=== PATIENT | male | born 1945 | race Caucasian/White ===

== ENCOUNTER 2018-07-23 11:00 | Inpatient (IN) ==
[2018-10-01] MEDS ORDERED: Chlorhexidine Gluconate 2% 1 Pack (2 Cloths) TOPICAL ONE (05:40)
[2018-10-01] MEDS ORDERED: Metoprolol Tartrate 25 MG Tablet PO ONE (05:40)
[2018-10-01] MEDS ORDERED: Chlorhexidine 4% Topical 120 APPLIC/120 ML Bottle TOPICAL SCH (05:45)
[2018-10-01] MEDS ORDERED: ceFAZolin 2 GM Premix Inj 2 GM/50 ML PIGGYBACK IV.SIG SCH (06:00)
[2018-10-01] MEDS ORDERED: Sodium Chlor 0.9% Inj 500 ML IV.SIG ONE (06:00)
[2018-10-01] MEDS ORDERED: Bupivacaine Liposomal PF 1.3% Inj 20 ML Vial ONE (06:16)
[2018-10-01] MEDS ORDERED: Propofol Inj 500 MG/50 ML Vial ONE (06:18)
[2018-10-01] MEDS ORDERED: Famotidine PF Inj 20 MG/2 ML Vial ONE (06:18)
[2018-10-01] MEDS ORDERED: fentaNYL Citrate Inj 100 MCG/2 ML Ampul ONE (06:40)
[2018-10-01] MEDS ORDERED: fentaNYL Citrate Inj 250 MCG/5 ML Ampul ONE (06:40)
[2018-10-01] MEDS ORDERED: TRANEXAMIC ACID IV.SIG SCH ×2 (07:00→10:00)
[2018-10-01] MEDS ORDERED: Sodium Chlor 0.9% Inj 80 ML, Bupivacaine Liposo PF 1.3% Inj 20 ML P-ARTICULR SCH ×2 (07:00)
[2018-10-01] MEDS ORDERED: SODIUM CHLOR 0.9% IV.SIG SCH ×2 (07:00→10:00)
[2018-10-01] MEDS ORDERED: [UNRECOGNIZED DRUG - OTHER] IRRIGATION ONE ×2 (08:15)
[2018-10-01] MEDS ORDERED: GENTAMICIN IRRIGATION ONE ×2 (08:15)
[2018-10-01] MEDS ORDERED: Bisacodyl 10 MG Supp RECTAL PRN (09:36)
[2018-10-01] MEDS ORDERED: Acetaminophen 325 MG Tablet PO PRN (09:36)
[2018-10-01] MEDS ORDERED: Post-op Orders (for Pharmacy) OTHER STA (09:36)
[2018-10-01] MEDS ORDERED: Morphine Inj 4 MG/ML Vial IV.PUSH PRN (09:36)
[2018-10-01] MEDS ORDERED: Zolpidem Tartrate 5 MG Tablet PO PRN (09:36)
[2018-10-01] MEDS ORDERED: Tranexamic Acid Inj 0 MG in Sodium Chlor 0.9% Inj 100 ML IV.SIG ONE (09:36)
[2018-10-01] MEDS ORDERED: Aluminum/Magnesium/Simethacone Susp 30 ML UDC PO PRN (09:36)
--- NOTE | 2018-10-01 09:46 | P.OP ---
- Preoperative Diagnosis (1) Primary osteoarthritis of left knee - Postoperative Diagnosis (1) Primary osteoarthritis of left knee Date of procedure: 10/01/18 Procedure: Left total knee arthroplasty using [place] Triathlon prosthesis (uncemented). Anesthesia: GETA, regional (Adductor canal block), local (Exparel) Surgeon: Jarrod Jarrett MD Wire Drawing Setter: OLAF Gant Estimated blood loss (mL): 200 Tourniquet time (min): 0 Pathology: none sent Operation and Findings: Indications and Findings: This 73-year-old man has had long-standing arthritis in his right knee nonresponsive to conservative measures including analgesics, activity modification, exercise. He is unable to take anti-inflammatory agents because of anticoagulation. His ambulation tolerance is 60 yards. He has pain in the medial aspect of the knee. He has difficulty ascending and descending stairs, especially descending. He has difficulty walking on uneven ground. He lives on a boat which makes activities of daily living limited. Treatment has included physical therapy, ambulatory aids, intra-articular corticosteroids and analgesics. Physical findings showed genu varum with medial laxity and palpable osteophytes as well as crepitation on motion. X-rays show loss of articular cartilage to [id number] in the medial compartment with medial lateral and patellofemoral osteophytes and medial subchondral sclerosis. Operative findings: There was significant arthritis that was tricompartmental in nature predominantly in the medial compartment, however. In addition, there was medial subchondral sclerosis and tricompartmental osteophytes. The prosthesis used was a [place] Triathlon prosthesis. The femur was a size 8 cruciate retaining. The tibial baseplate was a size 8 Tritanium with a 9 mm, X3 polyethylene, cruciate retaining spacer. The patella was a size 40 mm asymmetric Tritanium backed. The patient was brought to the clean-air operating suite after administration of a regional anesthetic by adductor canal block. A spinal anesthetic was administered. The position was supine with a small bolster under the hip on the operative side. A pneumatic tourniquet was applied to the upper thigh. The lower extremity was prepped with alcohol, Hibiclens and ChloraPrep and draped in the usual manner with the knee draped free. An appropriate timeout procedure was carried out. An incision was made from about 3 fingerbreadths above the superior medial pole of patella down the tibial tubercle on the medial side. The incision was deepened through the subcutaneous tissue to the retinacular structures which were exposed medially and laterally. A medial retinacular incision was made from the superior medial pole of patella down the tibial tubercle and up into the quadriceps tendon, splitting it longitudinally in the medial one third. The patella was reflected. The infrapatellar fat pad was debulked. The anterior cruciate ligament was excised. Medial and lateral meniscectomies were initiated. Fenestrations were made in the distal femur and proximal tibia for intramedullary referencing guides. The distal femoral cutting guide and jig were assembled for a 5, 8 mm cut. When this was fit into position,the cutting block was stabilized with pins. The jig was removed. The distal femoral cut was completed with the oscillating saw. The sizing guide was positioned in place along Whitesides line and the epicondylar axis and stabilized with pins. The femoral size was determined as noted above. The 4-in-1 cutting block was positioned in place. Anterior and posterior cuts were made followed by posterior and anterior chamfer cuts taking care to prevent injury to ligamentous structures. Osteophytes were trimmed from the distal femur. A bone plug was placed into the fenestration of the distal femur. The proximal tibia was exposed. The medial and lateral meniscectomies were completed. The proximal tibial cutting guide was positioned in place and stabilized with a pin for rotation. The depth of cut was verified with a stylus off the high side. The cutting block was stabilized with pins. The jig was removed. The depth of cut was verified and adjusted appropriately with the use of the spacer block. The proximal tibial cut was made with the oscillating saw taking care to prevent injury to neurovascular and ligamentous structures. Proximal tibial bone was removed. Local anesthetic was administered with Exparel in the posterior capsule. The tibial baseplate trial was positioned in place. After verifying the appropriate size, the base plate trial was positioned in place along with its spacer. The femoral component was impacted into place. The alignment was checked. The tibial baseplate was pinned in place on the tibia. Attention was directed to the patella. The patella drill guide was positioned in place for the appropriate sized patella. Patellar drilling was then carried out. The trial patella was positioned in place. The knee was taken through a range of motion. It was felt that further posterior tibial cuts were necessary therefore a bone plug was placed into the tibia fenestration and the extra medullary guide was used to adjust the posterior slope of the tibia by about 2 mm. The cut was then made with the oscillating saw. The trial prostheses were again positioned in place. The knee was taken through a range of motion which was easily 0 extension to 150 degrees. The patella trial was removed. The femoral drill holes were made. The femoral trials were removed. The tibial spacer was removed. A bone plug was placed into the proximal tibia. The tibial punch was impacted through the proximal tibial punch guide. This was all removed followed by placement of the tibial drill guide. The tibial drill holes were made. The guide was removed. The cut ends of bone were cleaned with pulse lavage. The tibial baseplate was impacted into place and seated appropriately. The spacer was inserted. The the femoral component was impacted into place and seated appropriately. The patella component was seated with the patellar vice and tightened appropriately. The knee was taken through a range of motion which was comparable to the previous range of motion with excellent stability in flexion and extension and appropriate patellofemoral tracking. The remainder of the Exparel was injected throughout the knee as a local anesthetic. Drains were brought out the superior lateral aspect of the suprapatellar pouch. Wound closure commenced using 0 Vicryl interrupted [id number] sutures for the capsular and fascial structures, 2-0 Vicryl interrupted simple sutures with buried knots for the subcutaneous tissues and 4-0 Monocryl, continuous subcuticular closure for the skin. The wound was dressed with Dermabond Prineo followed by an OPTifoam AG dressing. Sterile soft roll with a cooling pad and Lloyd bandage from the base of the toes to mid thigh were applied. Patient was transferred from the operating room to the recovery room in satisfactory condition having tolerated procedure well. Counts were correct. Specimens: None. Estimated blood loss: 200 mL
--- NOTE | 2018-10-01 09:48 | P.DCO ---
- Physical Therapy Knee: Total knee, Protocol: Left, Gait training, Full weight bearing Right Lower Extremity Weight Bearing: Weight bearing as tolerated Right Lower Extremity Range of Motion: Active ROM (Active, active assisted and passive range of motion. The range of motion goal is 0 degrees extension to 140 degrees of flexion. The range of motion achieved in the operating room was 0 degrees extension to 150 degrees of flexion.) - Nursing Nursing: Dressing changes (Do not remove Dermabond Prineo (the tape that is directly on the wound).Leave the Optifoam dressing in place for 7 days. After this, daily dressing changes will be done taking care to avoid injuring or removing the Dermabond Prineo.) Dressing changes: Other (Do not remove Dermabond Prineo (the tape that is directly on the wound).Leave the Optifoam dressing in place for 7 days. After this, daily dressing changes will be done taking care to avoid injuring or removing the Dermabond Prineo.) - Certification Need for Home Health services: I have seen patient Kaiden Coppola on 10/01/18. My clinical findings support the need for the requested home health care services because: Need for Home Health Services: Limited ability to care for self, High risk of falls Homebound Certification: I certify that my clinical findings support that this patient is homebound because: Homebound Certification: Post-op weakness, Unsteady gait/balance, Unsafe to leave home unassisted
[2018-10-01] MEDS ORDERED: Pantoprazole Sodium 20 MG DR Tablet PO PRN (10:15)
[2018-10-01] MEDS ORDERED: *morphine SULFATE 4 MG/ML PERIprocedure ONLY ONE ×2 (10:18→10:37)
[2018-10-01] MEDS: Ketorolac Inj 30 MG/ML (IVP) Vial IV.PUSH SCH ×3 (10:21→22:00)
[2018-10-01] MEDS ORDERED: HYDROmorphone PF Inj 0.5 MG/0.5 ML Syringe ONE (10:58)
--- NOTE | 2018-10-01 11:41 | XR ---
EXAM DATE: 10/01/2018 11:25 AM EST AGE/SEX: 73 years / Male INDICATIONS: Post-op total left knee arthroplasty. CLINICAL DATA: This is the patient's initial encounter. Patient reports that signs and symptoms have been present for 1 day and indicates a pain score of 5/10. MEDICAL/SURGICAL HISTORY: None. None. COMPARISON: COMP, XR KNEE COMPLETE, LEFT, 09/08/2017. . FINDINGS: AP and lateral views of the knee following arthroplasty reveals a prosthesis in anatomic alignment. F racture is not appreciated. Surgical drain is evident CONCLUSION: Status post total knee arthroplasty. Ti Paige MD FACR Electronically signed by: Ti Paige MD Board Certified Radiologist 10/01/2018 11:39 AM EST
--- NOTE | 2018-10-01 13:07 | P.CONIM ---
History of Present Illness Primary Care Provider: Yaz Pierre MD Chief Complaint: Hip pain History of Present Illness: The patient is a very pleasant 72-year-old male with past medical history of A. fib, coronary artery disease with stent placement, hypertension, hyperlipidemia, GERD, depression, BPH. The patient came to same-day surgery for elective left knee replacement. The patient was seen after the surgery. He appears in not acute distress. He is saturating well on room air. Denies having any chest pain or shortness of breath. No nausea vomiting no diarrhea constipation. No urinary complaints. No fever or chills. He is not coughing. Pain at the surgical site is controlled by medications. No concerns at this time. Review of Systems Review of Systems: all other systems reviewed are negative [facility] Medical History Medical History Arthritis (Acute) History of anesthesia reaction (Acute) History of atrial fibrillation (Acute) History of deviated nasal septum (Acute) History of heart attack (Acute) Hx of renal calculi (Acute) Hypertension (Acute) Surgical History Surgical History History of nasal septoplasty (Acute) Hx of arthroscopy of right knee (Acute) Hx of cardiac cath (Acute) Hx of cholecystectomy (Acute) Hx of elbow surgery (Acute) Hx of hernia repair (Acute) Hx of left knee surgery (Acute) Hx of lithotripsy (Acute) Hx of shoulder surgery (Acute) Hx of vasectomy (Acute) Family History Family History Father Myocardial infarction Sister Congestive heart failure Hyperlipidemia Social History Social History Substance History: No History of Abuse Second Hand Smoke Exposure: No Smoking Status: Never smoker How Often Do You Have a Drink Containing Alcohol: 4 or more times a week Recent Travel in [facility] within the Last 8 Weeks: No Recent Out of Country Travel within the Last 8 Weeks: No Medications and Allergies Allergies Allergy/AdvReac Type Severity Reaction Status Date / Time codeine Allergy Severe Vomiting Verified 09/10/18 14:46 Home Medications Medication Instructions Recorded Confirmed Type acetaminophen [Tylenol Extra 500 mg PO Q6H PRN 06/08/18 10/01/18 History Strength] amlodipine 5 mg PO DAILY 06/08/18 10/01/18 History aspirin 81 mg PO DAILY 06/08/18 10/01/18 History atenolol 12.5 mg PO BID 06/08/18 10/01/18 History atorvastatin [Lipitor] 40 mg PO HS 06/08/18 10/01/18 History clopidogrel 75 mg PO DAILY 06/08/18 10/01/18 History potassium 1,080 mg PO DAILY 06/08/18 10/01/18 History sertraline 50 mg PO DAILY 06/08/18 10/01/18 History tamsulosin 0.8 mg PO HS 06/08/18 10/01/18 History testosterone cypionate 200 mg IM Q3W 06/08/18 10/01/18 History mecobalamin (vitamin B12) 2,000 cap PO DAILY 09/10/18 10/01/18 History multivitamin [Daily Multiple] 1 tab PO DAILY 09/10/18 10/01/18 History omeprazole magnesium [Prilosec OTC] 20 mg PO HS PRN 10/01/18 10/01/18 History Active Medications: Active Medications Acetaminophen (Tylenol) 650 mg PO Q6H PRN PRN Reason: Pain Less Than 3 On Scale Hydrocodone Bitart/Acetaminophen ([place] 7.5/325) 1 tab PO Q4H PRN PRN Reason: PAIN SCALE 4 TO 6 MODERATE Hydrocodone Bitart/Acetaminophen ([place] 7.5/325) 2 tab PO Q6H PRN PRN Reason: PAIN SCALE 7 TO 10 SEVERE Al Hydrox/Mg Hydrox/Simethicone (Mag-Al Plus Susp Liq) 30 ml PO Q6H PRN PRN Reason: INDIGESTION Al Hydroxide/Mg Hydroxide (Milk Of Magnesia Liq) 30 ml PO BID PRN PRN Reason: Mild Constipation Amlodipine Besylate (Norvasc) 5 mg PO DAILY [facility] Aspirin (Aspirin Chew) 81 mg PO DAILY [facility] Atenolol (Tenormin) 12.5 mg PO BID [facility] Atorvastatin Calcium (Lipitor) 40 mg PO HS [facility] Bisacodyl (Dulcolax Supp) 10 mg RECTAL DAILY PRN PRN Reason: SEVERE CONSITIPATION Chlorhexidine Gluconate (Hibiclens 4% Topical) 1 applicatio TOPICAL ONCE [facility] Stop: 10/05/18 05:44 Last Admin: 10/01/18 05:40 Dose: 1 applicatio Clopidogrel Bisulfate (Plavix) 75 mg PO DAILY [facility] Cyanocobalamin (Vitamin B12) 2,000 mcg PO DAILY [facility] Diphenhydramine HCl (Benadryl) 25 mg PO Q6H PRN PRN Reason: ITCHING Lactated Ringer's (Lr 1000 Ml Inj) 1,000 mls @ 30 mls/hr IV.SIG .Q24H [facility] Stop: 10/02/18 05:44 Last Infusion: 10/01/18 09:45 Dose: Infused Sodium Chloride (Ns Inj) 500 mls @ 30 mls/hr IV.SIG .[id number] Stop: 10/01/18 22:39 Last Admin: 10/01/18 10:14 Dose: Not Given Lactated Ringer's (Lr 1000 Ml Inj) 1,000 mls @ 80 mls/hr IV.CONT .[id number] [facility] Last Admin: 10/01/18 10:25 Dose: 80 mls/hr Cefazolin Sodium 1 gm/ Sodium (Chloride) 100 mls @ 100 mls/hr IV.SIG Q6H [facility] Stop: 10/02/18 01:59 Ketorolac Tromethamine (Toradol Inj) 15 mg IV.PUSH Q6H [facility] Stop: 10/02/18 04:01 Last Admin: 10/01/18 10:21 Dose: 15 mg Lactulose (Lactulose Liq) 30 ml PO DAILY PRN PRN Reason: SEVERE CONSITIPATION Miscellaneous Information (Misc Nursing Information) 0 each OTHER UNSCH PRN PRN Reason: SEE LABEL COMMENTS Stop: 10/02/18 10:08 Morphine Sulfate (Morphine Inj) 2 mg IV.PUSH Q3H PRN PRN Reason: BREAKTHROUGH PAIN Multivitamins (Theragran) 1 tab PO DAILY [facility] Ondansetron HCl (Zofran Odt) 4 mg PO Q6H PRN PRN Reason: NAUSEA OR VOMITING Pantoprazole Sodium (Protonix) 20 mg PO HS PRN PRN Reason: ABDOMINAL DISCOMFORT Senna/Docusate Sodium (Reba-Colace) 1 tab PO BID [facility] Sennosides (Senokot) 17.2 mg PO BID PRN PRN Reason: Moderate Constipation Sertraline HCl (Zoloft) 50 mg PO DAILY [facility] Sodium Chloride (Ns Flush) 2 ml IV.FLUSH BID [facility] Sodium Chloride (Ns Flush) 2 ml IV.FLUSH PRN PRN PRN Reason: FLUSH AFTER USING IV ACCESS Tamsulosin HCl (Flomax) 0.8 mg PO HS [facility] Testosterone Cypionate (Depo-Testosterone Inj) 200 mg IM ONCE ONE Stop: 10/04/18 09:01 Zolpidem Tartrate (Ambien) 5 mg PO HS PRN PRN Reason: INSOMNIA Physical Exam Vital signs: Last Vital Signs Temp 97.7 F 10/01/18 11:10 Pulse 71 10/01/18 12:30 Resp 12 10/01/18 12:30 BP 125/60 10/01/18 12:30 Pulse Ox 94 L 10/01/18 12:30 Intake & Output 09/29/18 09/30/18 10/01/18 10/02/18 06:59 06:59 06:59 06:59 Intake Total 2321.18 / 2321.18 Output Total 220 / 220 Balance 2101.18 / 2101.18 Weight 105.9 kg Narrative: GENERAL: The patient is a very pleasant 73-year-old male, well- nourished well-developed appears in not acute distress. SKIN: Warm and dry. HEAD: Atraumatic. Normocephalic. EYES: Pupils equal and round. No scleral icterus. No injection or drainage. ENT: No nasal bleeding or discharge. Mucous membranes pink and moist. NECK: Trachea midline. No JVD. CARDIOVASCULAR: Regular rate and rhythm. RESPIRATORY: No accessory muscle use. Clear to auscultation. Breath sounds equal bilaterally. GASTROINTESTINAL: Abdomen soft, non-tender, nondistended. Hepatic and splenic margins not palpable. MUSCULOSKELETAL: Left knee status post surgery, wrapped. Neurovascular intact. NEUROLOGICAL: Awake and alert. No obvious cranial nerve deficits. Motor grossly within normal limits. Five out of 5 muscle strength in the arms and legs. Normal speech. PSYCHIATRIC: Appropriate mood and affect; insight and judgment normal. Results Imaging Impressions Knee X-Ray 10/01/18 06:43 CONCLUSION: Status post total knee arthroplasty. Ti Paige MD FACR ABG Impressions Knee X-Ray 10/01/18 06:43 CONCLUSION: Status post total knee arthroplasty. Ti Paige MD FACR Assessment and Plan Plan Very pleasant 73-year-old male status post knee surgery Left knee osteoarthritis Status post Date of procedure: 10/01/18 Procedure: Left total knee arthroplasty using [place] Triathlon prosthesis (uncemented). Anesthesia: GETA, regional (Adductor canal block), local (Exparel) Surgeon: Jarrod Jarrett MD Management per surgeon Chronic medical problems appears stable at this time, continue to monitor. Restart home medications. A. fib rate control at this time. Coronary artery disease with history of stents. Plavix held prior to surgery restart per surgeon indication Restart home medications as appropriate. Monitor and adjust medications as needed Stable at this time Thank you for this consultation. Discussed with the patient, family at bedside, nurse.
[2018-10-01] MEDS: ceFAZolin Inj 1 GM in Sodium Chlor 0.9% Inj 100 ML IV.SIG SCH ×2 (13:37→18:00)
[2018-10-01] MEDS: Atenolol 25 MG Tablet PO SCH (20:46)
[2018-10-01] MEDS: Senna/Docusate Sodium 8.6/50 MG Tablet PO SCH (20:48)
[2018-10-02] MEDS: ceFAZolin Inj 1 GM in Sodium Chlor 0.9% Inj 100 ML IV.SIG SCH (02:00)
[2018-10-02] MEDS: Ketorolac Inj 30 MG/ML (IVP) Vial IV.PUSH SCH (05:00)
--- NOTE | 2018-10-02 06:06 | P.PNOP ---
Subjective Interval history: Postop day #1 He is doing well. He has minimal complaints. He had no pain when he was walking last night. This morning, he has a pain level 8 when he does a straight leg raise but less than a 5 when resting. He reports that his home situation is that he lives on a boat. He has to step from a dock to the boat. He has to walk sideways to the entry level machine operator way. He has 5 steep steps to get down into the cabin. He usually goes down the steps sideways. Physical therapy reports that the ambulation distance was 80 feet. The range of motion was 0 degrees of extension to 70 degrees of flexion. Physical Exam Vital signs: Vital Signs 10/01/18 06:14 10/01/18 10:04 10/01/18 10:15 Temperature 98.1 F 97.9 F Pulse Rate 58 L 84 74 Respiratory Rate 20 14 14 Blood Pressure 160/74 H 144/67 H 167/64 H Pulse Oximetry 99 97 10/01/18 10:30 10/01/18 10:45 10/01/18 11:00 Temperature Pulse Rate 73 75 74 Respiratory Rate 14 15 13 Blood Pressure 134/63 132/60 129/59 L Pulse Oximetry 97 97 97 10/01/18 11:10 10/01/18 11:35 10/01/18 12:00 Temperature 97.7 F Pulse Rate 75 73 Respiratory Rate 14 12 12 Blood Pressure 131/56 L Pulse Oximetry 97 96 10/01/18 12:30 10/01/18 15:30 10/01/18 19:33 Temperature 97.9 F 98.3 F Pulse Rate 71 72 73 Respiratory Rate 12 14 18 Blood Pressure 125/60 145/63 H 132/59 L Pulse Oximetry 94 L 96 95 10/02/18 00:10 10/02/18 03:46 Temperature 98.2 F 97.5 F L Pulse Rate 70 67 Respiratory Rate 18 18 Blood Pressure 128/64 125/61 Pulse Oximetry 95 96 Intake & Output 10/01/18 10/01/18 10/02/18 06:59 18:59 06:59 Intake Total 2421.18 / 2421.18 1200 / 1200 Output Total 370 / 370 Balance 205.18 / 2050.18 1200 / 1200 Weight 105.9 kg 105.9 kg Intake: IV 1371.18 / 1371.18 1200 / 1200 LR 1000 mL Inj 1,000 ML @ 80 1000 / 1000 mls/hr IV.CONT .[id number] [facility] Rx# :[id number] LR 1000 mL Inj 1,000 ML @ 30 1000 / 1000 mls/hr IV.SIG .Q24H [facility] Rx#: [id number] Cyklokapron Inj 1,059 MG In NS 221.18 / 221.18 Inj 100 ML @ 200 mls/hr IV.SIG ONCE [facility] Rx#:[id number] Ancef 2 GM Premix Inj 2 gm In 50 / 50 50 ml @ 100 mls/hr IV.SIG 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 The dressing is dry and intact. The neurovascular status is intact. Results - Labs CBC & Chem 7: 10/02/18 05:38 Laboratory Results - last 24 hr 10/01/18 05:57 Blood Type O Negative Blood Type Recheck Required Antibody Screen Negative - Imaging Impressions Knee X-Ray 10/01/18 06:43 CONCLUSION: Status post total knee arthroplasty. Ti Paige MD FACR - Procedures Left total knee arthroplasty using [place] Triathlon prosthesis (uncemented) on 10/01/2018 Assessment and Plan - Ortho Post Op Day # 1 - Problem List (1) Status post total left knee replacement not using cement Code(s): Z96.652 - Presence of left artificial knee joint Status: Acute Plan: Continue postop care and PT. - Assessment and Plan Condition: Good. Orthopedically stable. DVT prophylaxis: TEDs, aspirin, sequentials. Discharge plans: Home with home health care after rehabilitation in a [facility]dc facility. An appointment was scheduled through the office. Prescriptions: [place] 7.5/325; Patient is having significant pain caused by a total knee arthroplasty which will last more than 3 days. Trial of Tylenol has not helped. I believe that it is medically necessary to treat patients pain because it is affecting patients ability to participate in postoperative rehabilitation and perform activities of daily living in a comfortable and efficient manner. I have checked the [facility] database prior to completing the prescription.
[2018-10-02 06:24] LABS: Hematocrit 28.5 % (39.0-51.0); Hemoglobin 9.9 gm/dL (13.0-17.0)
[2018-10-02] MEDS: amLODIPine 5 MG Tablet PO SCH (08:32)
[2018-10-02] MEDS: Sertraline 50 MG Tablet PO SCH (08:33)
[2018-10-02] MEDS: Senna/Docusate Sodium 8.6/50 MG Tablet PO SCH ×2 (08:33→22:27)
[2018-10-02] MEDS: Atenolol 25 MG Tablet PO SCH ×2 (08:36→22:27)
[2018-10-02] MEDS ORDERED: POTASSIUM PO SCH (09:00)
--- NOTE | 2018-10-02 16:32 | P.PNIM ---
Subjective Interval history: Follow-up for left knee osteoarthritis, status post left total knee arthroplasty, atrial fibrillation, and CAD with stent Patient seen and examined laying in bed, family at bedside. Patient denies any chest pain or shortness of breath, denies any palpitation at this time. Complains of some hiccups recurrent chronic. Patient stated it comes and goes and and doing different interventions to stop the hiccups. Patient instructed the breathing exercises. Patient mention of some knee discomfort however controlled by pain medication. Stated that the drain was empty 2 times yesterday and once today., Patient stated he has been doing well with physical therapy. Patient denies any fever or chills, headache or dizziness, abdominal pain, nausea, vomiting, diarrhea or constipation. Physical Exam Vital signs: Last Vital Signs Temp 98 F 10/02/18 11:38 Pulse 62 10/02/18 11:38 Resp 18 10/02/18 11:38 BP 147/67 H 10/02/18 11:38 Pulse Ox 95 10/02/18 11:38 Intake & Output 09/30/18 10/01/18 10/02/18 10/03/18 06:59 06:59 06:59 06:59 Intake Total 4101.18 / 4101.18 Output Total 480 / 480 370 / 370 125 / 125 Balance -480 / -480 3731.18 / 3731.18 -125 / -125 Weight 105.9 kg 105.9 kg Narrative: GENERAL: Well-developed, well-nourished, male laying in bed in no apparent distress SKIN: Warm and dry. HEAD: Atraumatic. Normocephalic. NECK: Trachea midline. No JVD. CARDIOVASCULAR: Irregular regular rate and rhythm. RESPIRATORY: No accessory muscle use. Clear to auscultation. Breath sounds equal bilaterally. GASTROINTESTINAL: Abdomen soft, non-tender, nondistended. Hepatic and splenic margins not palpable. MUSCULOSKELETAL: Extremities without clubbing, cyanosis, left knee wrapped with dressing and Lloyd wrap, drain in place with moderate amount of serosanguineous drainage. NEUROLOGICAL: Awake and alert. No obvious cranial nerve deficits. Motor grossly within normal limits. Five out of 5 muscle strength in the arms and legs , Except left lower extremity with limited range of motion. Normal speech. PSYCHIATRIC: Appropriate mood and affect; insight and judgment normal. Results Labs CBC & Chem 7: 10/02/18 05:38 Procedures Procedures: Left total knee arthroplasty using [place] Triathlon prosthesis ( uncemented) on 10/01/2018 Assessment and Plan (1) Status post total left knee replacement not using cement: Code(s): Z96.652 - Presence of left artificial knee joint Status: Acute Plan This is a 73-year-old male status post knee surgery Left knee osteoarthritis Status post Date of procedure: 10/01/18 Left total knee arthroplasty using [place] Triathlon prosthesis (uncemented), with Dr Jarrod Jarrett MD -Management per surgeon -Pain management with bowel regimen -Drain in place PT rehab per protocol -Discharge plan to home with home health care after rehabilitation in a intermediate facility Hypertension -Blood pressure controlled -Continue amlodipine, atenolol -Monitor blood pressure, adjust medication as needed Atrial fibrillation Coronary artery disease with history of stents. Hyperlipidemia - Plavix held prior to surgery restart per surgeon indication -No chest pain no shortness of breath -Heart rate controlled -Continue atenolol, aspirin, Lipitor, and Plavix -Monitor heart rate Depression, history of -Continue home medications sertraline -Monitor mental status BPH, history of -Continue home tamsulosin and testosterone Hypokalemia, chronic - continue home potassium -Monitor BMP DVT prophylaxis: SCD and early ambulation. Patient on aspirin and Plavix restarted Code Status: Full code Discussed Condition With: Patient, family and nurse Discharge Planning: Plan to discharge to SNF then home with home health care per Orth O recommendation. Needle Punch Operator please assist with placement Progress Note: Quality VTE Deep Vein Thrombosis/Pulmonary Embolism Present on Admission: No
[2018-10-03 07:01] LABS: Hematocrit 29.2 % (39.0-51.0); Hemoglobin 9.9 gm/dL (13.0-17.0)
--- NOTE | 2018-10-03 08:12 | P.PNOP ---
Subjective Interval history: Postop day #2 He has more pain today than he did yesterday. Yesterday he could do straight leg raise but today he is difficulty doing so. He had some pain in the thigh. The knee itself is not so bad. Physical therapy reports that the ambulation distance was 200 feet. The range of motion was 0 degrees of extension to 110 degrees of flexion. Physical Exam Vital signs: Vital Signs 10/02/18 11:38 10/02/18 16:00 10/02/18 20:29 Temperature 98 F 98.6 F 98.7 F Pulse Rate 62 60 59 L Respiratory Rate 18 20 20 Blood Pressure 147/67 H 128/58 L 159/69 H Pulse Oximetry 95 96 96 10/03/18 00:04 10/03/18 04:52 Temperature 97.6 F 98.1 F Pulse Rate 60 61 Respiratory Rate 18 18 Blood Pressure 146/67 H 148/67 H Pulse Oximetry 97 98 Intake & Output 10/02/18 10/03/18 10/03/18 18:59 06:59 18:59 Intake Total 1000 / 1000 480 / 480 Output Total 675 / 675 500 / 500 Balance 325 / 325 -20 / -20 Weight 105.9 kg Intake: IV 1000 / 1000 LR 1000 mL Inj 1,000 ML @ 80 1000 / 1000 mls/hr IV.CONT .[id number] [facility] Rx# :[id number] Oral 480 / 480 Output: Urine 550 / 550 500 / 500 Wound Drainage 125 / 125 # 1 Left Knee Hemovac 125 / 125 Other: # Voids 3 Date of Last Bowel Movement 09/30/18 09/30/18 Narrative: He is resting relatively comfortably, supine in bed. The neurovascular status is intact. His drain is out. There is a small amount of bloody drainage at the dressing over the drain site; otherwise, his dressing is intact. Results - Labs CBC & Chem 7: 10/03/18 05:34 Laboratory Results - last 24 hr 10/03/18 05:34 Hgb 9.9 L Hct 29.2 L - Procedures Left total knee arthroplasty using [place] Triathlon prosthesis (uncemented) on 10/01/2018 Assessment and Plan - Ortho Post Op Day # 2 - Problem List (1) Status post total left knee replacement not using cement Code(s): Z96.652 - Presence of left artificial knee joint Status: Acute Plan: Analgesics will be adjusted. - Assessment and Plan Condition: Good. Orthopedically stable. DVT prophylaxis: TEDs, aspirin, sequentials. Discharge plans: Home with home health care after rehabilitation in a alf facility. An appointment was scheduled through the office. Prescriptions: [place] 7.5/325; Patient is having significant pain caused by a total knee arthroplasty which will last more than 3 days. Trial of Tylenol has not helped. I believe that it is medically necessary to treat patients pain because it is affecting patients ability to participate in postoperative rehabilitation and perform activities of daily living in a comfortable and efficient manner. I have checked the [employer] database prior to completing the prescription.
[2018-10-03] MEDS: amLODIPine 5 MG Tablet PO SCH (09:11)
[2018-10-03] MEDS: Sertraline 50 MG Tablet PO SCH (09:11)
[2018-10-03] MEDS: Atenolol 25 MG Tablet PO SCH ×2 (09:12→21:12)
[2018-10-03] MEDS: Senna/Docusate Sodium 8.6/50 MG Tablet PO SCH ×2 (09:12→21:13)
--- NOTE | 2018-10-03 12:01 | P.PNIM ---
Subjective Interval history: Follow-up for left knee osteoarthritis, status post left total knee arthroplasty, atrial fibrillation, and CAD with stent. Patient sitting in the bed, eating lunch, family at bedside. Patient still complaining of hiccups that comes and goes. Patient stated he started again after he ate. Stated it comes down last night when he slipped that it started again this morning. Patient also complained of left leg being heavy and tight. And more pain today than yesterday, stated that since the nerve block was worn out his pain is more and uncontrolled. Discussed pain medication increased dose, and morphine in between for breakthrough pain available. Patient denies any headache or dizziness, denies any chest pain or shortness of breath, denies any abdominal pain, nausea, or vomiting. Patient complains of constipation, last bowel movement is on Monday, had stool softener this morning. Discussed availability of laxatives Discussed with nurse to give laxative today. And PRN pain medication in between. Physical Exam Vital signs: Vital Signs 10/02/18 16:00 10/02/18 20:29 10/03/18 00:04 Temperature 98.6 F 98.7 F 97.6 F Pulse Rate 60 59 L 60 Respiratory Rate 20 20 18 Blood Pressure 128/58 L 159/69 H 146/67 H Pulse Oximetry 96 96 97 10/03/18 04:52 10/03/18 08:00 Temperature 98.1 F 98.3 F Pulse Rate 61 64 Respiratory Rate 18 18 Blood Pressure 148/67 H 151/67 H Pulse Oximetry 98 97 Intake & Output 10/02/18 10/03/18 10/03/18 18:59 06:59 18:59 Intake Total 1000 / 1000 480 / 480 Output Total 675 / 675 500 / 500 Balance 325 / 325 -20 / -20 Weight 105.9 kg Intake: IV 1000 / 1000 LR 1000 mL Inj 1,000 ML @ 80 1000 / 1000 mls/hr IV.CONT .[id number] [facility] Rx# :[id number] Oral 480 / 480 Output: Urine 550 / 550 500 / 500 Wound Drainage 125 / 125 # 1 Left Knee Hemovac 125 / 125 Other: # Voids 3 Date of Last Bowel Movement 09/30/18 09/30/18 Narrative: GENERAL: Well-developed, well-nourished, male sitting in the bed, with continuous hiccups SKIN: Warm and dry. HEAD: Atraumatic. Normocephalic. NECK: Trachea midline. No JVD. CARDIOVASCULAR: Irregular regular rate and rhythm. RESPIRATORY: No accessory muscle use. Clear to auscultation. Breath sounds equal bilaterally. GASTROINTESTINAL: Abdomen soft, non-tender, nondistended. Hepatic and splenic margins not palpable. MUSCULOSKELETAL: Extremities without clubbing, cyanosis. left knee wrapped with dressing and Lloyd wrap, edema noted on left knee and left lower leg. NEUROLOGICAL: Awake and alert. No obvious cranial nerve deficits. Motor grossly within normal limits. Five out of 5 muscle strength in the arms and legs , Except left lower extremity with limited range of motion. Normal speech. PSYCHIATRIC: Appropriate mood and affect; insight and judgment normal Results Labs CBC & Chem 7: 10/03/18 05:34 Procedures Procedures: Left total knee arthroplasty using [place] Triathlon prosthesis ( uncemented) on 10/01/2018 Assessment and Plan (1) Status post total left knee replacement not using cement: Code(s): Z96.652 - Presence of left artificial knee joint Status: Acute Plan This is a 73-year-old male status post knee surgery Left knee osteoarthritis Status post Date of procedure: 10/01/18 Left total knee arthroplasty using [place] Triathlon prosthesis (uncemented), with Dr Jarrod Jarrett MD -Management per surgeon -Pain management with bowel regimen -Drain in place -PT rehab per protocol -Discharge plan to home with home health care after rehabilitation in a group home facility -Pain uncontrolled since the nerve block worn out, OrthO increased pain medication dosage, with PRN morphine in between Hypertension -Blood pressure controlled -Continue amlodipine, atenolol -Monitor blood pressure, adjust medication as needed -Add clonidine as needed for SBP greater than 160 or DBP greater than 90 Atrial fibrillation Coronary artery disease with history of stents. Hyperlipidemia - Plavix held prior to surgery restart per surgeon indication -No chest pain no shortness of breath -Heart rate controlled -Continue atenolol, aspirin, Lipitor, and Plavix -Monitor heart rate Depression, history of -Continue home medications sertraline -Monitor mental status BPH, history of -Continue home tamsulosin and testosterone Hypokalemia, chronic - continue home potassium -Monitor BMP Intractable hiccups acute on chronic -Start Thorazine as needed DVT prophylaxis: SCD and early ambulation. Patient on aspirin and Plavix restarted Discharge Planning: Plan to discharge to SNF then home with home health care per [facility] O recommendation. Pipe Layer Helper please assist with placement Progress Note: Quality VTE Deep Vein Thrombosis/Pulmonary Embolism Present on Admission: No
[2018-10-03] MEDS ORDERED: ChlorproMAZINE 25 MG Tablet PO PRN (13:00)
[2018-10-04 06:40] VITALS: O2SAT 97
--- NOTE | 2018-10-04 06:46 | P.PNOP ---
Subjective Interval history: Postop day #1 He is doing well. He has minimal complaints at this point other than when he has not taken his pain medication. Physical therapy reports that the ambulation distance was 100 feet. The range of motion was 0 degrees of extension to 90 degrees of flexion. Physical Exam Vital signs: Vital Signs 10/03/18 08:00 10/03/18 12:00 10/03/18 17:04 Temperature 98.3 F 98.7 F 98.8 F Pulse Rate 64 65 71 Respiratory Rate 18 16 17 Blood Pressure 151/67 H 137/63 128/59 L Pulse Oximetry 97 94 L 96 10/03/18 20:00 10/04/18 00:14 Temperature 98.3 F 98.4 F Pulse Rate 62 64 Respiratory Rate 18 17 Blood Pressure 156/69 H 162/74 H Pulse Oximetry 95 95 Intake & Output 10/03/18 10/03/18 10/04/18 06:59 18:59 06:59 Intake Total 480 / 480 Output Total 500 / 500 Balance - Weight 105.9 kg Intake: Oral 480 / 480 Output: Urine 500 / 500 Other: # Voids 3 Date of Last Bowel Movement 09/30/18 10/03/18 Results - Labs CBC & Chem 7: 10/03/18 05:34 Laboratory Results - last 24 hr 10/03/18 05:34 Hgb 9.9 L Hct 29.2 L - Procedures Left total knee arthroplasty using [place] Triathlon prosthesis (uncemented) on 10/01/2018 Assessment and Plan - Ortho Post Op Day # 3 - Problem List (1) Status post total left knee replacement not using cement Code(s): Z96.652 - Presence of left artificial knee joint Status: Acute - Assessment and Plan Condition: Good. Orthopedically stable. DVT prophylaxis: TEDs, aspirin, sequentials. Discharge plans: Home with home health care after rehabilitation in a care home facility. An appointment was scheduled through the office. Prescriptions: [place] 10/325; Patient is having significant pain caused by a total knee arthroplasty which will last more than 3 days. Trial of Tylenol has not helped. I believe that it is medically necessary to treat patients pain because it is affecting patients ability to participate in postoperative rehabilitation and perform activities of daily living in a comfortable and efficient manner. I have checked the [facility] database prior to completing the prescription.
--- NOTE | 2018-10-04 06:53 | P.DS ---
Date of admission: 10/01/18 05:17 Primary care physician: Yaz Pierre MD Attending physician on discharge: Jarrod Jarrett Anticipated date of discharge: 10/04/18 Brief History from admission: This 73-year-old man has had long-standing right knee nonresponsive to conservative measures including anti-inflammatory agents take them, analgesics, ambulatory aids, intra-articular corticosteroid injections. He has continued pain with ambulation that limits his ambulation tolerance significantly. He getting [place] and [place] of [place]. Physical findings showed genu varum with crepitation throughout the entire range of motion, medial compartment tenderness, medial compartment laxity and palpable osteophytes. Radiographic findings showed loss of articular cartilage to [id number] in the medial compartment with some narrowing in the lateral compartment and tricompartmental osteophytes. There was medial subchondral sclerosis. DS: Diagnosis - Discharge Diagnosis (1) Status post total left knee replacement not using cement Status: Acute Diagnosis: Principal (2) Primary osteoarthritis of left knee Status: Chronic Diagnosis: Principal DS: Medications - Discharge Medications Prescriptions: hydrocodone-acetaminophen 1 tab PO Q4H PRN 7 Days #42 tab PRN Reason: Pain DS: Summary Hospital Course: The patient was admitted as noted above. The above noted operative procedure was carried out that day. Preoperatively prophylactic antibiotics were administered Ancef according to protocol. These were continued postoperatively. The patient also received tranexamic acid to help with hemostasis according to protocol. In the postanesthesia care unit mechanical methods of DVT prophylaxis in the form of IRIS stockings and sequentials were initiated. Physical therapy was initiated on the day of surgery. On postoperative day #1 physical therapy continued. DVT prophylaxis with resumption of Plavix and aspirin was initiated at this time. The patient continued physical therapy throughout the hospitalization. The distance walked and range of motion improved throughout the hospitalization. The patient was discharged on postoperative day 3 with the disposition being to a group home facility, [facility]. An appointment for follow-up was made prior to admission. - Time Spent with Patient Total time spent providing and/or coordinating discharge services: Greater than 30 minutes - Quality: VTE Deep Vein Thrombosis/Pulmonary Embolism Present on Admission: No Exam Vital signs: Vital Signs 10/03/18 08:00 10/03/18 12:00 10/03/18 17:04 Temperature 98.3 F 98.7 F 98.8 F Pulse Rate 64 65 71 Respiratory Rate 18 16 17 Blood Pressure 151/67 H 137/63 128/59 L Pulse Oximetry 97 94 L 96 10/03/18 20:00 10/04/18 00:14 10/04/18 05:11 Temperature 98.3 F 98.4 F 98.4 F Pulse Rate 62 64 60 Respiratory Rate 18 17 16 Blood Pressure 156/69 H 162/74 H 140/74 Pulse Oximetry 95 95 97 Intake & Output 10/03/18 10/03/18 10/04/18 06:59 18:59 06:59 Intake Total 480 / 480 Output Total 500 / 500 Balance - Weight 105.9 kg Intake: Oral 480 / 480 Output: Urine 500 / 500 Other: # Voids 3 Date of Last Bowel Movement 09/30/18 10/03/18 Narrative: He is resting relatively comfortably, supine in bed. The neurovascular status is intact. His drain is out. There is a small amount of bloody drainage at the dressing over the drain site; otherwise, his dressing is intact. Results Procedures completed during hospitalization: Left total knee arthroplasty using [place] Triathlon prosthesis (uncemented) on 10/01/2018 Labs on day of discharge: Labs from last 24 hours 10/03/18 05:34 Hgb 9.9 L Hct 29.2 L - Impressions ITS Impressions Knee X-Ray 10/01/18 06:43 CONCLUSION: Status post total knee arthroplasty. Ti Paige MD FACR Discharge Plan - Discharge Disposition Patient Disposition: 03 Discharge to SNF - Discharge Condition Condition: Stable - Discharge Order Discharge Orders: Discharge Order (Routine); Ordered 10/04/18 Ordered By: Jarrod Jarrett - Discharge Details Anticipated Discharge Date: 10/04/18 - Physicians Team Primary Care Provider: Yaz Pierre Attending Provider: Jarrod Jarrett Other Providers: Teresa Saul MD ; [facility] ; [facility] - Rxs /Orders / Referrals /Forms Prescriptions: New hydrocodone-acetaminophen 10-325 mg Tablet 1 tab PO Q4H PRN (Reason: Pain) 7 Days Qty: 42 RF: 0 Continue acetaminophen [Tylenol Extra Strength] 500 mg Tablet 500 mg PO Q6H PRN (Reason: Pain) amlodipine 5 mg Tablet 5 mg PO DAILY aspirin 81 mg Tablet,Chewable 81 mg PO DAILY atenolol 25 mg Tablet 12.5 mg PO BID atorvastatin [Lipitor] 40 mg Tablet 40 mg PO HS clopidogrel 75 mg Tablet 75 mg PO DAILY mecobalamin (vitamin B12) 1,000 mcg Tablet,Disintegrating 2,000 cap PO DAILY multivitamin [Daily Multiple] Tablet 1 tab PO DAILY omeprazole magnesium [Prilosec OTC] 20 mg Tablet,Delayed Release (Dr/Ec) 20 mg PO HS PRN (Reason: Abdominal Discomfort) potassium 99 mg Tablet 1,080 mg PO DAILY sertraline 50 mg Tablet 50 mg PO DAILY tamsulosin 0.4 mg Capsule,Extended Release 24hr 0.8 mg PO HS testosterone cypionate 100 mg/mL Oil 200 mg IM Q3W Referrals: Jarrod Jarrett MD [Physician] - See Instructions Yaz Pierre MD [Primary Care Provider] - See Instructions - Discharge Instructions Patient Printed Instructions: Knee Replacement (DC)
[2018-10-04] MEDS: amLODIPine 5 MG Tablet PO SCH (09:07)
[2018-10-04] MEDS: Sertraline 50 MG Tablet PO SCH (09:07)
[2018-10-04] MEDS: Senna/Docusate Sodium 8.6/50 MG Tablet PO SCH (09:08)
[2018-10-04] MEDS: Atenolol 25 MG Tablet PO SCH (09:08)
--- NOTE | 2018-10-04 09:35 | P.PNIM ---
Subjective Interval history: Follow-up for left knee osteoarthritis, status post left total knee arthroplasty, atrial fibrillation, and CAD with stent. Patient seen and examined, sitting in the chair, stated ready to go rehab today at the [facility]. Patient stated pain is controlled by his pain medication. Left knee with ice machine on stated feeling better. Patient stated feeling better, denies any headache or dizziness, denies any chest pain or shortness of breath, denies any abdominal pain, nausea, vomiting, diarrhea or constipation. Patient states that had a big bowel movement last night. Patient denies any fever or chills. Family in room asking for to schedule a pickup. Discussed discharge planning with therapeutic case manager Physical Exam Vital signs: Vital Signs 10/03/18 12:00 10/03/18 17:04 10/03/18 20:00 Temperature 98.7 F 98.8 F 98.3 F Pulse Rate 65 71 62 Respiratory Rate 16 17 18 Blood Pressure 137/63 128/59 L 156/69 H Pulse Oximetry 94 L 96 95 10/04/18 00:14 10/04/18 05:11 10/04/18 08:00 Temperature 98.4 F 98.4 F 98.6 F Pulse Rate 64 60 65 Respiratory Rate 17 16 16 Blood Pressure 162/74 H 140/74 127/60 Pulse Oximetry 95 97 97 Intake & Output 10/03/18 10/04/18 10/04/18 18:59 06:59 18:59 Other: Date of Last Bowel Movement 10/03/18 Narrative: GENERAL: Well-developed, well-nourished, male sitting in the bed, with continuous hiccups SKIN: Warm and dry. HEAD: Atraumatic. Normocephalic. NECK: Trachea midline. No JVD. CARDIOVASCULAR: Irregular regular rate and rhythm. RESPIRATORY: No accessory muscle use. Clear to auscultation. Breath sounds equal bilaterally. GASTROINTESTINAL: Abdomen soft, non-tender, nondistended. Hepatic and splenic margins not palpable. MUSCULOSKELETAL: Extremities without clubbing, cyanosis. left knee wrapped with dressing and Lloyd wrap, edema noted on left knee and left lower leg.Ice machine in place NEUROLOGICAL: Awake and alert. No obvious cranial nerve deficits. Motor grossly within normal limits. Five out of 5 muscle strength in the arms and legs , Except left lower extremity with limited range of motion. Normal speech. PSYCHIATRIC: Appropriate mood and affect; insight and judgment normal Results Labs CBC & Chem 7: 10/03/18 05:34 Procedures Procedures: Left total knee arthroplasty using [place] Triathlon prosthesis ( uncemented) on 10/01/2018 Assessment and Plan (1) Status post total left knee replacement not using cement: Code(s): Z96.652 - Presence of left artificial knee joint Status: Acute (2) Primary osteoarthritis of left knee: Code(s): M17.12 - Unilateral primary osteoarthritis, left knee Status: Chronic Plan This is a 73-year-old male status post knee surgery Left knee osteoarthritis Status post Date of procedure: 10/01/18 Left total knee arthroplasty using [place] Triathlon prosthesis (uncemented), with Dr Jarrod Jarrett MD -Management per surgeon -Pain management with bowel regimen -PT rehab per protocol -Discharge plan to home with home health care after rehabilitation in a longterm facility -Pain uncontrolled since the nerve block worn out, OrthO increased pain medication dosage, with PRN morphine in between. Pain better controlled. -Cleared with Ortho to discharge to rehab facility, [facility] today Hypertension -Blood pressure controlled -Continue amlodipine, atenolol -Monitor blood pressure, adjust medication as needed -Add clonidine as needed for SBP greater than 160 or DBP greater than 90 Atrial fibrillation Coronary artery disease with history of stents. Hyperlipidemia - Plavix held prior to surgery restart per surgeon indication -No chest pain no shortness of breath -Heart rate controlled -Continue atenolol, aspirin, Lipitor, and Plavix -Monitor heart rate Depression, history of -Continue home medications sertraline -Monitor mental status BPH, history of -Continue home tamsulosin and testosterone Hypokalemia, chronic - continue home potassium -Monitor BMP Intractable hiccups acute on chronic -Start Thorazine as needed -Improved, no hiccups today DVT prophylaxis: SCD and early ambulation. Patient on aspirin and Plavix restarted Patient medically cleared to be discharged to SNF/rehab today. Thank you for your consultation Discharge Planning: Plan to discharge to SNF then home with home health care per Orth O recommendation. Tool Grinder Operator External please assist with placement Progress Note: Quality VTE Deep Vein Thrombosis/Pulmonary Embolism Present on Admission: No
[2018-10-04 12:09] VITALS: BP 119/75; PULSE 57; RESP 17; TEMP 97.2
== END 2018-10-04 14:42 | DRG 470 ==
LOC: HSDI 10-01 05:17 → N06 10-01 12:50
PROVIDERS: ADMIT Orthopaedic Surgery; ATTEND Orthopaedic Surgery
CPT/HCPCS: 73560; 85014; 85018; 86850; 86900; 86901; 94150; 97110; 97116; 97150; 97162; 97166; C1776; C9290; J0131; J0690; J1071; J1170; J1580; J1885; J2250; J2270; J2704; J3010; J7120